=== PATIENT | female | born 1995 | race Caucasian/White ===

== ENCOUNTER 2024-07-19 10:55 | Emergency (ER) | payer OTHER ==
[~2024-07-19] VITALS: Ht 162.6 cm; Wt 79.0 kg
[2024-07-19 11:09] VITALS: BP 118/67; PULSE 6; PULSE 66; RESP 18; TEMP 98; O2SAT 100
[2024-07-19] MEDS ORDERED: ONDA-188 SL (11:53)
[2024-07-19] MEDS ORDERED: AMOX500C25 PO (11:53)
[2024-07-19] MEDS ORDERED: BENZ-300 PO (11:53)
[2024-07-19] MEDS: ONDANSETRON 4 MG ODT PO ONE (11:59)
== END 2024-07-19 12:05 | disposition home or self-care (01) ==
LOC: MED 10:55
DX: J02.9 Acute pharyngitis, unspecified (principal); R11.10 Vomiting, unspecified; Z79.899 Other long term (current) drug therapy
CPT/HCPCS: 99283; Q0162